=== PATIENT | male | born 1970 | race Caucasian/White ===

== ENCOUNTER 2016-05-14 18:42 | Inpatient (IN) | payer MEDICAID ==
[~2016-05-14] VITALS: Ht 162.6 cm; Wt 67.6 kg
[2016-05-14 18:54] VITALS: BP 129/85
[2016-05-14] MEDS ORDERED: NACL 0.9% 2,500 ML IV ONE (19:05)
[2016-05-14] MEDS ORDERED: ALBUTEROL 0.083% 2.5 MG/3 ML NEBU INH ONE (19:05)
--- NOTE | 2016-05-14 19:10 | NUR ---
PT BIBA TO BED 5
--- NOTE | 2016-05-14 19:25 | NUR ---
45 YO MALE BIB EMS FROM [facility] FOR SOB AND COUGH. PT ON BED. VSS AT THIS TIME. ERMD AWARE. QUADRIPLEGIA. WITH MARIE CATH INTACT.
[2016-05-14] MEDS ORDERED: MAGNESIUM HYDROXIDE PO (19:44)
[2016-05-14] MEDS ORDERED: LIORESAL10 MG PO ×2 (19:44)
[2016-05-14] MEDS ORDERED: ASPIRIN81 M1 PO (19:44)
[2016-05-14] MEDS ORDERED: ORAPRED ODT10 MG PO (19:44)
[2016-05-14] MEDS ORDERED: COLACE100 M1 PO (19:44)
[2016-05-14] MEDS ORDERED: NEURONTIN300 MG PO (19:44)
[2016-05-14] MEDS ORDERED: VITAMIN C500 M8 PO (19:44)
[2016-05-14] MEDS ORDERED: MULTI-VITAMIN1 EACH PO (19:44)
[2016-05-14] MEDS ORDERED: LIPITOR20 MG PO (19:44)
[2016-05-14] MEDS ORDERED: NORCO 325 MG-7.1 TAB PO (19:44)
[2016-05-14] MEDS ORDERED: BISACODYL10 M1 RC (19:44)
[2016-05-14] MEDS ORDERED: ALBUTEROL1.25 MG/3 IH (19:44)
[2016-05-14] MEDS ORDERED: LORAZEPAM0.5 M1 PO (19:44)
[2016-05-14] MEDS ORDERED: COUGH100 MG/51 PO (19:44)
[2016-05-14] MEDS ORDERED: MELATONIN 3 MG1 EACH PO (19:44)
[2016-05-14] MEDS ORDERED: ACIDOPHILUS PR1 EACH PO (19:44)
[2016-05-14] MEDS ORDERED: AZTREONAM 2,000 MG in DEXTROSE 5% 100 ML IV ONE (19:45)
[2016-05-14] MEDS ORDERED: VANCOMYCIN 1,000 MG in DEXTROSE 5% 250 ML IV ONE (19:45)
[2016-05-14] MEDS ORDERED: LEVOFLOXACIN 750 MG/D5W PREMIX 150 ML IV ONE (19:45)
[2016-05-14] MEDS ORDERED: DETROL LA4 MG PO (19:54)
[2016-05-14] MEDS ORDERED: QVAR HFA MDI7.3 G1 INH (19:54)
[2016-05-14] MEDS ORDERED: FIBER0.52 GM PO (19:54)
[2016-05-14] MEDS ORDERED: ULTRAM50 MG PO (20:08)
[2016-05-14] MEDS ORDERED: ZINC SULFATE220 M1 PO (20:08)
[2016-05-14] MEDS ORDERED: TYLENOL325 M2 PO (20:08)
[2016-05-14] MEDS ORDERED: VANCOMYCIN 1,000 MG VIAL ONE (20:19)
[2016-05-14] MEDS ORDERED: AZTREONAM 1,000 MG VIAL ONE (20:20)
--- NOTE | 2016-05-14 20:58 | NUR ---
RN ON THE FLOOR STILL WITH THE OTHER PATIENT. WILL CALL BACK.
--- NOTE | 2016-05-14 21:00 | NUR ---
GAVE RDR. REPORT TO DIMPLE MCGRATH ON THE FLOOR. BP 86/41, DR. MCQUEEN AWARE.
--- NOTE | 2016-05-14 21:01 | NUR ---
Patient will be admitted to care of DR. ACUÑA. Admited to TELE. Will go to [facility]. Belongings list completed. Report to DIMPLE MCGRATH.
--- NOTE | 2016-05-14 21:10 | NUR ---
WILL CONTINUE TO MONITOR BP. DR. MCQUEEN AWARE
--- NOTE | 2016-05-14 21:20 | NUR ---
# 16 FR Morales catheter utilizing sterile technique. Immediate return of ml urine noted. Bedside drainage bag placed below level of bladder. Urine sample collected and sent to lab. Pt tolerated procedure WELL.
--- NOTE | 2016-05-14 21:46 | NUR ---
PT TRANSFERRED TO FLOOR ACCOMPANIED BY RN AND EMT ATTACHED TO UNIX MANAGER ON GUARDED CONDITION. VSS. BP 92/48 , O2 SAT 98% , HR 80, RR 22.
--- NOTE | 2016-05-14 21:50 | NUR ---
ADMITTED A PT FROM ER. TRANSPORTED VIA GURNEY, ACCOMPANIED BY ER NURSE. PT IS AAOX4, HAS NO COMPLAIN OF PAIN. HAS FACE MASK AT 10LPM. HAS MARIE CATHETER IN PLACED. APPLIED TELE MONITOR, UPDATED ID BAND, VERIFIED ALLERGY. IV SITE IS PATENT AND INTACT. SKIN CHECKING WITH THE CHARGE NURSE DONE, PRESSURE ULCER IDENTIFIED TO HIS RIGHT BUTTOCK, PHOTO TAKEN. ORIENTATION TO ROOM DONE. PLAN OF CARE DISCUSSED, VERBALIZED UNDERSTANDING. SAFETY MEASURES INITIATED. WILL CONTINUE TO MONITOR.
[2016-05-14 22:00] VITALS: BP 102/54
[2016-05-15] VITALS: BP 90/54
--- NOTE | 2016-05-15 | NUR ---
V/S CHECKED, HAS NO COMPLAIN OF PAIN. NO S/S OF RESPIRATORY DISTRESS/DISCOMFORT NOTED.
--- NOTE | 2016-05-15 00:45 | NUR ---
PT REQUESTED TO EAT CRACKERS, PROVIDED. ALL NEEDS MET AND ATTENDED. CALL LIGHT WITHIN REACH.
[2016-05-15] MEDS ORDERED: MORPHINE SULFATE 2 MG/ML SYR IVP PRN (01:35)
[2016-05-15] MEDS ORDERED: ACETAMINOPHEN 325 MG TAB PO PRN (01:35)
[2016-05-15] MEDS ORDERED: HYDROcodone/APAP 5/325 MG 1 TAB TAB PO PRN (01:35)
[2016-05-15] MEDS ORDERED: ONDANSETRON 4 MG/2 ML VIAL IVP PRN (01:35)
[2016-05-15] MEDS ORDERED: ALBUTEROL 0.083% 2.5 MG/3 ML NEBU INH PRN (01:35)
[2016-05-15] MEDS ORDERED: COMPOSITE DRESSING TP PRN (01:40)
[2016-05-15] MEDS: NACL 0.9% 1,000 ML IV SCH ×2 (02:43→21:37)
--- NOTE | 2016-05-15 02:48 | NUR ---
PT SLEEPING. SAFETY MEASURES CHECKED, CALL LIGHT WITHIN REACH. NO S/S OF RESPIRATORY DISTRESS/DISCOMFORT NOTED.
[2016-05-15 04:00] VITALS: BP 103/69
--- NOTE | 2016-05-15 04:00 | NUR ---
V/S CHECKED ANS STABLE. HAS NO COMPLAIN OF PAIN. NO S/S OF RESPIRATORY DISTRESS/DISCOMFORT NOTED.
--- NOTE | 2016-05-15 05:28 | NUR ---
0520 SXNED PT NOSE. RECIEVED MOD AMT PALE YELLOW SECRETIONS. PT STATES HE FEELS BETTER POST HHNTX AND SXNING
[2016-05-15] MEDS ORDERED: ALBUTEROL 0.083% 2.5 MG/3 ML NEBU INH SCH (07:00)
--- NOTE | 2016-05-15 07:21 | NUR ---
ENDORSED REPORT TO DAY SHIFT NURSE FOR CONTINUITY OF CARE. PT IS IN STABLE CONDITION.
[2016-05-15] MEDS: ALBUTEROL SULFATE/IPRATROPIU 3 ML SOL IH PRN (07:26)
[2016-05-15] MEDS: BUDESONIDE 0.5 MG/2 ML NEBU INH SCH ×2 (07:26→19:08)
--- NOTE | 2016-05-15 07:30 | NUR ---
RECEIVED PATIENT REPORT AT BEDSIDE. PATIENT AWAKE, ALERT AND ORIENTED. NO S/S OF DISTRESS NOTED. PATIENT ON 8L O2 VIA FACE MASK. MARIE CATHETER IN PLACE, DRAINING CLEAR YELLOW URINE. IV SITE TO THE LEFT FOREARM INTACT WITH IVF INFUSING WELL. PATIENT ON TELE MONITORING. BED LOWERED WITH CALL LIGHT WITHIN REACH. WILL CONTINUE TO MONITOR
[2016-05-15 08:00] VITALS: BP 111/39
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
--- NOTE | 2016-05-15 08:00 | NUR ---
'PATIENT SEEN BY THE WOUND CARE NURSE. DRESSING ON THE RIGHT BUTTOCK WOUND CHANGED. DR ACUÑA PRESENT IN THE ROOM AND EXPLAINED TO THE PATIENT THAT HE WILL BE SEEN BY A SURGEON FOR A POSSIBLE DEBRIDEMENT
--- NOTE | 2016-05-15 09:00 | NUR ---
ASSISTED PATIENT WITH BREAKFAST. PATIENT ON 3L O2 VIA NC. NO S/S OF DISTRESS NOTED. WILL CONTINUE TO MONITOR
--- NOTE | 2016-05-15 09:46 | NUR ---
ABG RESULTS GIVEN TO . MADE PHYSICIAN AWARE THAT PT WAS PLACED BACK ON 3L NC. WILL CONTINUE TO MONITOR.
[2016-05-15] MEDS: SCOPOLAMINE 1.5 MG/72 HR PATCH TD SCH (09:55)
[2016-05-15] MEDS: ALBUTEROL SULFATE/IPRATROPIU 3 ML SOL IH SCH ×4 (11:47→22:36)
[2016-05-15 12:00] VITALS: BP 90/45
[2016-05-15] MEDS ORDERED: LORazepam 2 MG/ML VIAL IM/IVP SCH (13:10)
[2016-05-15 14:01] VITALS: BP 112/68
[2016-05-15] MEDS ORDERED: guaiFENesin 20 MG/ML UDC PO PRN (14:20)
[2016-05-15] MEDS ORDERED: ALBUTEROL SULFATE 1.25 MG IH PRN (14:20)
[2016-05-15] MEDS ORDERED: HYDROcodone/APAP 7.5/325 MG 1 TAB PO PRN (14:20)
[2016-05-15] MEDS ORDERED: MAGNESIUM HYDROXIDE 2400 MG/30 ML UDC PO PRN (14:20)
[2016-05-15] MEDS ORDERED: LORazepam 1 MG TAB PO PRN (14:20)
[2016-05-15] MEDS ORDERED: BISACODYL 10 MG SUPP RC PRN (14:20)
[2016-05-15] MEDS ORDERED: ACETAMINOPHEN 325 MG TAB PO SCH (14:20)
[2016-05-15] MEDS ORDERED: PSYLLIUM HUSK 0.52 GM PO SCH (14:20)
[2016-05-15] MEDS ORDERED: PSYLLIUM 12.2 GM/PKT PO PRN (14:55)
--- NOTE | 2016-05-15 15:01 | NUR ---
PATIENT SEEN BY DR PERSAUD
--- NOTE | 2016-05-15 15:15 | NUR ---
05/15/16 INITIAL ASSESSMENT COMPLETED PLEASE REFER TO NUTRITION ASSESSMENT UNDER CARE ACTIVITY FOR ESTIMATED NUTRITIONAL NEEDS. RD RECOMMENDATIONS: 1. CONTINUE ON REGULAR DIET TOLERATED RD WILL MONITOR GLUCOSE LAB VALUES RD WILL ADD DIET HEALTH SHAKES BID FOR INCREASE PROTEIN NEEDS FOR OPTIMUM WOUND HEALING --THIS WILL ADD AN ADDITIONAL 400 KCAL AND [address] WILL F/U 3-5 DAYS; MODERATE RISK. ALYSSIA FREEMAN RD
--- NOTE | 2016-05-15 15:26 | NUR ---
FOUND PT ON ROOM AIR SPO2 94%. PT NOT SOB AND NOT IN RESPIRATORY DISTRESS. BEDSIDE MADE AWARE OF ABG RESULTS AND SPO2 ON ROOM AIR, PHYSICIAN STATES TO KEEP PT ON ROOM AIR AND MONITOR SATURATION.
[2016-05-15 16:00] VITALS: BP 105/66
[2016-05-15] MEDS: BACLOFEN 10 MG TAB PO SCH (16:37)
[2016-05-15] MEDS: OXYBUTYNIN 5 MG TAB PO SCH (16:38)
[2016-05-15] MEDS ORDERED: traMADol 50 MG TAB PO SCH ×2 (18:00→18:36)
--- NOTE | 2016-05-15 19:25 | NUR ---
ENDORSED CONTINUITY OF CARE TO THE NIGHT NURSE. PATIENT IN STABLE IN CONDITION
--- NOTE | 2016-05-15 19:30 | NUR ---
RCV'D PT ON 2 L NC SAT 97% HR 84. BS ARE CLEAR AND DIMINISHED. HHN TX OF DUO AND PULMICORT GIVEN. NO SIGNS OF SOB OR DISTRESS NOTED. DIMPLE RICHEY AT BEDSIDE. WILL CONTINUE TO MONITOR.
--- NOTE | 2016-05-15 19:32 | NUR ---
RECEIVED REPORT FROM DAY RN FOR CONTINUITY OF CARE. PATIENT IS A&OX4, DISCUSSED PLAN OF CARE WITH PATIENT, VERBALIZED UNDERSTANDING. SHIFT ASSESSMENT DONE, VS TAKEN, IN STABLE CONDITION. NO S/S OF RESPIRATORY DISTRESS NOTED ON 2L NC, O2 SAT 98-99%. PATIENT DENIES PAIN AT THIS TIME. PT HAS PRESSURE ULCER TO RT BUTTOCK, DRESSING DRY AND INTACT. IV TO RT HAND 22 GAUGE PATENT AND FLUSHED. MARIE CATHETER IN PLACE, DRAINING LIGHT HAILE URINE. PT REQUESTED TO BE TURNED, TURNED AND REPOSITIONED PT. SAFETY/FALL PRECAUTIONS ENFORCED. CALL LIGHT PLACED WITHIN REACH. WILL CONTINUE TO MONITOR.
[2016-05-15] MEDS ORDERED: NON-FORMULARY ITEM (Melatonin/Pyridoxine HCl (B6) (Melatonin 3 mg Tablet) 1 EACH) PO SCH (21:00)
[2016-05-15] MEDS ORDERED: [UNRECOGNIZED DRUG - OTHER] PO SCH (21:00)
[2016-05-15] MEDS ORDERED: BECLOMETHASONE DIPROPIONATE INH SCH (21:00)
[2016-05-15] MEDS ORDERED: TOLTERODINE LA 4 MG CAPER PO SCH (21:00)
[2016-05-15] MEDS ORDERED: PREDNISOLONE SOD PHOSPHATE PO SCH (21:00)
[2016-05-15] MEDS: GABAPENTIN 300 MG CAP PO SCH (21:35)
[2016-05-15] MEDS: CLINDAMYCIN 600 MG in DEXTROSE 5% 50 ML IV SCH (21:35)
--- NOTE | 2016-05-15 21:35 | NUR ---
DUE MEDICATIONS ADMINISTERED, TOLERATED WELL. WILL CONTINUE TO MONITOR.
[2016-05-15] MEDS: prednisoLONE 15 MG/5 ML UDC PO SCH (21:36)
[2016-05-15] MEDS: LEVOFLOXACIN 750 MG/D5W PREMIX 150 ML IV SCH (22:02)
--- NOTE | 2016-05-15 22:21 | NUR ---
PT STATES HAVING ANXIETY, ADMINISTERED ATIVAN PER MD ORDER, VS STABLE. REPOSITIONED PATIENT, TOLERATED WELL.
[2016-05-16] VITALS: BP 90/53
[2016-05-16] MEDS: traMADol 50 MG TAB PO SCH ×4 (00:17→18:08)
--- NOTE | 2016-05-16 00:17 | NUR ---
VS TAKEN, STABLE. DUE MEDICATIONS ADMINISTERED.
--- NOTE | 2016-05-16 02:04 | NUR ---
REPOSITIONED AND TURNED PATIENT. REPLACED IV FLUIDS. ALL NEEDS MET AT THIS TIME. CALL LIGHT WITHIN REACH.
[2016-05-16] MEDS: ALBUTEROL SULFATE/IPRATROPIU 3 ML SOL IH SCH ×6 (03:40→23:38)
[2016-05-16 04:00] VITALS: BP 99/50
--- NOTE | 2016-05-16 04:05 | NUR ---
REPOSITIONED PATIENT TO OFFLOAD PRESSURE. VS TAKEN, STABLE. CALL LIGHT PLACED WITHIN REACH. EMPTIED MARIE BAG 1800 ML.
[2016-05-16] MEDS: CLINDAMYCIN 600 MG in DEXTROSE 5% 50 ML IV SCH ×3 (05:33→20:40)
--- NOTE | 2016-05-16 05:33 | NUR ---
DUE MEDICATIONS ADMINISTERED, TOLERATED WELL. ALL NEEDS MET AT THIS TIME. CALL LIGHT PLACED WITHIN REACH.
--- NOTE | 2016-05-16 07:10 | NUR ---
RECEIVED PT REPORT AT BEDSIDE. PT IS A/OX4. HE IS RESTING IN BED WITH NO SIGNS AND SYMPTOMS OF DISTRESS. PT ON RM AIR CURRENTLY RECEIVING BREATHING TX. IV NOTED ON THE R HAND SALINE LOCKED. PT HAS MARIE CATHETER IN PLACE WITH YELLOW URINE. PT HAS DRESSING ON RIGHT BUTTOCK. DRESSING IS CLEAN DRY AND INTACT. ON TELE MONITORING. BED LOWERED WITH CALL LIGHT WITHIN REACH. WILL CONTINUE TO MONITOR.
--- NOTE | 2016-05-16 07:23 | NUR ---
ENDORSED PATIENT TO DAY RN FOR CONTINUITY OF CARE, PATIENT IS IN STABLE CONDITION.
[2016-05-16] MEDS: BUDESONIDE 0.5 MG/2 ML NEBU INH SCH ×2 (07:24→18:57)
[2016-05-16 08:00] VITALS: BP 104/67
[2016-05-16] MEDS: ASPIRIN 81 MG TAB.CHEW PO SCH (08:45)
[2016-05-16] MEDS: DOCUSATE SODIUM 250 MG GELCAP PO SCH (08:46)
[2016-05-16] MEDS: LACTOBACILLUS RHAMNOSUS GG 1 EACH CAP PO SCH ×2 (08:46→08:52)
[2016-05-16] MEDS: BACLOFEN 10 MG TAB PO SCH ×3 (08:47→16:13)
[2016-05-16] MEDS: ATORVASTATIN 20 MG TAB PO SCH (08:47)
[2016-05-16] MEDS: OXYBUTYNIN 5 MG TAB PO SCH ×3 (08:47→16:13)
[2016-05-16] MEDS: GABAPENTIN 300 MG CAP PO SCH ×2 (08:48→20:39)
[2016-05-16] MEDS: MULTIVITAMIN 1 TAB PO SCH (08:49)
[2016-05-16] MEDS: ASCORBIC ACID 500 MG TAB PO SCH (08:50)
[2016-05-16] MEDS: ZINC SULF 220 MG CAP PO SCH (08:51)
[2016-05-16] MEDS: prednisoLONE 15 MG/5 ML UDC PO SCH ×2 (08:51→20:39)
--- NOTE | 2016-05-16 09:00 | NUR ---
ADMINISTERED DUE MEDS. PT TOLERATED WELL. PT REPOSITIONED AND TURNED. PT ON RM AIR. NO SIGNS AND SYMPTOMS OF DISTRESS NOTED WILL CONTINUE TO MONITOR.
[2016-05-16 11:28] VITALS: BP 110/67
--- NOTE | 2016-05-16 11:30 | NUR ---
PT IS IN BED WITH NO S/S OF DISTRESS. TOOK PT VITALS THEY ARE WITHIN NORMAL LIMITS.
--- NOTE | 2016-05-16 14:00 | NUR ---
PT IS IN BED RESTING WHILE ON HIS PHONE. NO S/S OF DISTRESS NOTED.
[2016-05-16 16:00] VITALS: BP 95/54
--- NOTE | 2016-05-16 17:00 | NUR ---
DRESSING ON R BUTTOCK CHANGED WITH MODERATE DRAINAGE. PT TOLERATED WELL.
[2016-05-16] MEDS: NACL 0.9% 1,000 ML IV SCH (17:32)
--- NOTE | 2016-05-16 19:10 | NUR ---
GAVE REPORT AT BEDSIDE WITH ADELITA MUSA. PT IS CURRENTLY RECEIVING BREATHING TX WITH RT. PT IS COMFORTABLE IN BED AND SHOWS NO S/S OF DISTRESS. PT ENDORSED IN STABLE CONDITION.
--- NOTE | 2016-05-16 19:11 | NUR ---
PATIENT IS CURRENTLY AWAKE ALERT RESTING IN BED DENIES PAIN AND DISCOMFORT AT THIS TIME HE IS RESTING ON A WOUND CARE MATTRESS AND CONTINUES TO HAVE HIS SCD'S ON FOR DVT PROPHALAXIS.PT WAS RECENTLY TURNED AND REPOSITIONED.MARIE CATHETER TO GRAVITY DRAINING WELL,IVF INFUSING WELL IV SITE CURRENTLY PATENT.PT ABLE TO VERBALIZE NEEDS.WILL CONTINUE TO MONITOR.
[2016-05-16 20:00] VITALS: BP 90/45
[2016-05-16] MEDS: LEVOFLOXACIN 750 MG/D5W PREMIX 150 ML IV SCH (20:39)
--- NOTE | 2016-05-16 20:39 | NUR ---
EDUCATION GIVEN ON HIS ROUTINE MEDICATION AND PATIENT TOOK ALL HIS ROUTINE MEDICATION WELL,WILL CONTINUE TO MONITOR.
--- NOTE | 2016-05-16 22:11 | NUR ---
PATIENT WAS TURNED AND REPOSITIONED OFFLOADING DONE WITH PILLOWS TURNED WITH THE ASSISTANCE OF VANNA OSHEA AND MYSELF. PATIENT TOLERATED ACTIVITY WELL AND PT STATES,"I FEEL COMFORTABLE." PATIENT IS VERY COMPLIANT WITH TURNING AND REPOSITIONING.CALL LIGHT WITHIN REACH WILL CONTINUE TO MONITOR.
--- NOTE | 2016-05-16 23:24 | NUR ---
Patient's Plan of Care was discussed and reviewed with ANTENNA INSTALLER: ADELITA MANDUJANO
[2016-05-17 00:15] VITALS: BP 113/64
--- NOTE | 2016-05-17 00:15 | NUR ---
PATIENT WAS TURNED AND REPOSITIONED FOR COMFORT WITH THE ASSISTANCE OF VANNA OSHEA,TURNING AND OFFLOADING DONE PT REFUSED TO WEAR THE SCD'S PT STATES,"THEY FEEL UNCOMFORTABLE." EDUCATION GIVEN ON THE IMPORTANCE OF WEARING THEM FOR DVT PROPHALAXIS PT VERBALIZES UNDERSTANDING BUT PT REFUSES TO WEAR THEM.PT HAS NO COMPLAINS OF PAIN AT THIS TIME.WILL CONTINUE TO MONITOR FREQUENT VISUAL CHECKS DONE.WATER GIVEN TO THE PATIENT CALL LIGHT KEPT WITHIN PT'S REACH.
[2016-05-17] MEDS: traMADol 50 MG TAB PO SCH ×4 (01:07→17:48)
[2016-05-17] MEDS: ALBUTEROL SULFATE/IPRATROPIU 3 ML SOL IH SCH ×6 (02:13→22:45)
--- NOTE | 2016-05-17 02:33 | NUR ---
PATIENT STABLE RESTING COMFORTABLY IN BED IN NO DISTRESS,IVF INFUSING WELL WILL CONTINUE TO MONITOR.CALL LIGHT WITHIN REACH.
--- NOTE | 2016-05-17 04:05 | NUR ---
PATIENT RESTING COMFORTABLY IN BED WAS TURNED AND REPOSITIONED WITH THE ASSISTANCE OF VANNA REED AND VANNA WILCOX. CALL LIGHT WITHIN REACH.
[2016-05-17] MEDS: CLINDAMYCIN 600 MG in DEXTROSE 5% 50 ML IV SCH ×3 (04:33→20:28)
--- NOTE | 2016-05-17 05:57 | NUR ---
PATIENT IS CURRENTLY RESTING IN BED WAS TURNED AND REPOSITIONED EARLIER BY VANNA WILCOX AND VANNA REED PT DOING WELL.IVF INFUSING WELL IV SITE PATENT WILL CONTINUE TO MONITOR.
[2016-05-17] MEDS: BUDESONIDE 0.5 MG/2 ML NEBU INH SCH ×2 (06:38→19:07)
--- NOTE | 2016-05-17 06:42 | NUR ---
PT ASLEEP AT THIS TIME WILL CONTINUE TO MONITOR.
--- NOTE | 2016-05-17 07:15 | NUR ---
RECEIVED PATIENT REPORT AT BEDSIDE. PATIENT ASLEEP BUT EASILY AROUSABLE. NO S/S OF DISTRESS NOTED. PATIENT ON ROOM AIR. IV LINE NOTED TO THE RIGHT UPPER ARM WITH IVF INFUSING WELL. MARIE CATHETER IN PLACE, DRAINING CLEAR YELLOW URINE. BED LOWERED WITH CALL LIGHT WITHIN REACH. WILL CONTINUE TO MONITOR
[2016-05-17 08:00] VITALS: BP 117/65
--- NOTE | 2016-05-17 08:00 | NUR ---
PATIENT TURNED AND REPOSITIONED. PATIENT TOLERATED WELL
--- NOTE | 2016-05-17 08:50 | NUR ---
ADMINISTERED AM MEDICATION. PT TOLERATED WELL. PT IS RESTING IN BED.
[2016-05-17] MEDS: BACLOFEN 10 MG TAB PO SCH ×3 (08:52→17:51)
[2016-05-17] MEDS: ASPIRIN 81 MG TAB.CHEW PO SCH (08:54)
[2016-05-17] MEDS: DOCUSATE SODIUM 250 MG GELCAP PO SCH (08:54)
[2016-05-17] MEDS: OXYBUTYNIN 5 MG TAB PO SCH ×3 (08:54→17:48)
[2016-05-17] MEDS: GABAPENTIN 300 MG CAP PO SCH ×2 (08:55→20:23)
[2016-05-17] MEDS: ASCORBIC ACID 500 MG TAB PO SCH (08:56)
[2016-05-17] MEDS: MULTIVITAMIN 1 TAB PO SCH (08:56)
[2016-05-17] MEDS: ZINC SULF 220 MG CAP PO SCH (08:56)
[2016-05-17] MEDS: ATORVASTATIN 20 MG TAB PO SCH (08:57)
[2016-05-17] MEDS: LACTOBACILLUS RHAMNOSUS GG 1 EACH CAP PO SCH ×2 (08:58→09:00)
[2016-05-17] MEDS: prednisoLONE 15 MG/5 ML UDC PO SCH ×2 (08:59→20:23)
--- NOTE | 2016-05-17 12:00 | NUR ---
ADMINISTERED SCHEDULED MEDICATIONS. PT TOLERATED WELL AND IS RESTING IN BED.
--- NOTE | 2016-05-17 12:45 | NUR ---
PT IS BEING FED LUNCH BY NURSE. NO S/S OF DISTRESS.
[2016-05-17] MEDS: NACL 0.9% 1,000 ML IV SCH (13:32)
--- NOTE | 2016-05-17 14:00 | NUR ---
PT WAS REPOSITIONED. PT TOLERATED WELL. PT IS WATCHING TV AND RESTING IN THE ROOM.
[2016-05-17 16:00] VITALS: BP 91/51
--- NOTE | 2016-05-17 17:54 | NUR ---
PT IN BED AND IS BEING FED BY NURSE INFANTRY WEAPONS CREWMEMBER. PT IS TOLERATING WELL.
--- NOTE | 2016-05-17 18:30 | NUR ---
WOUND DRESSING CHANGED. PATIENT REPOSITIONED AND TURNED. PT TOLERATED WELL
--- NOTE | 2016-05-17 19:15 | NUR ---
GAVE PT REPORT AT BEDSIDE. PT ENDORSED IN STABLE CONDITION.
--- NOTE | 2016-05-17 19:16 | NUR ---
PATIENT IS CURRENTLY RESTING IN SPECIAL WOUND CARE BED NO RESPIRATORY DISTRESS AT THIS TIME,PT SPIT UP SCANT AMOUNT OF WHITISH THICK FOAMY PHLEGM. IVF INFUSING WELL IV SITE CURRENTLY PATENT.WILL CONTINUE TO TURN AND REPOSITION THE PATIENT.PT REFUSED TO WEAR THE SCD'S PATIENT STATES,"ITS UNCOMFORTABLE."EDUCATION GIVEN ON THE IMPORTANCE OF WEARING SCD'S FOR DVT PROPHALAXIS PT REFUSED AT THIS TIME.MARIE DRAINING TO GRAVITY WILL CONTINUE TO OBSERVE.
[2016-05-17 20:00] VITALS: BP 113/67
--- NOTE | 2016-05-17 20:10 | NUR ---
PATIENT WAS TURNED AND REPOSITIONED FOR COMFORT WITH THE ASSISTANCE OF VANNA REED. PATIENT CONTINUES TO SPIT SCANT AMOUNT OF FOAMY THICK WHITE PHLEGM.MD GREEN CAME AND SAW THE PATIENT AND HE WAS UPDATED ON PATIENT'S CURRENT CONDITION. PATIENT WAS GIVEN SOME WATER AND OFFERED FLUIDS.CALL LIGHT WITHIN REACH WILL CONTINUE TO MONITOR.
--- NOTE | 2016-05-17 20:23 | NUR ---
EDUCATION GIVEN ON THE ROUTINE MEDICATION THAT HE WILL BE TAKING TONIGHT,PATIENT VERBALIZES UNDERSTANDING AND HE TOOK HIS MEDICATION.CALL LIGHT WITHIN REACH.
[2016-05-17] MEDS: LEVOFLOXACIN 750 MG/D5W PREMIX 150 ML IV SCH (20:28)
--- NOTE | 2016-05-17 21:00 | NUR ---
Patient's Plan of Care was discussed and reviewed with BEND UP: ADELITA MANDUJANO
--- NOTE | 2016-05-17 22:50 | NUR ---
ROUNDS MADE PATIENT STATES," I WOULD LIKE SOME OXYGEN." I PLACE PATIENT ON O2 AT 2L NC FOR NOW AND I WILL CONTINUE TO MONITOR THE PATIENT.
--- NOTE | 2016-05-17 23:58 | NUR ---
PATIENT IS CURRENTLY RESTING IN BED PATIENT CONTINUE TO BE TURNED AND REPOSITIONED FOR COMFORT PATIENT NEEDS MET WILL CONTINUE TO MONITOR.
[2016-05-18 00:25] VITALS: BP 102/73
[2016-05-18] MEDS: traMADol 50 MG TAB PO SCH ×5 (00:50→23:57)
--- NOTE | 2016-05-18 00:50 | NUR ---
PATIENT WAS TURNED AND REPOSITIONED FOR COMFORT WITH THE ASSISTANCE OF FILM BOOKERPenny OSHEA NEEDS MET WILL CONTINUE TO MONITOR.
--- NOTE | 2016-05-18 01:53 | NUR ---
PT CALLED AND STATES HIS HAVING SOME CHEST DISCOMFORT I CHECKED HIS BLOOD PRESSURE 105/76 HR 80 PT STATES,"I THINK ITS BECAUSE I HAVE BEEN TRYING TO COUGH UP THE PHLEGM MAYBE IM JUST A LITLLE ANXIOUS."PATIENT CONTINUES TO HAVE OXYGEN AT 2LITERS NASAL CANNULA AND OFFERED WATER.CALL LIGHT WITHIN REACH WILL CONTINUE TO OBSERVE.
[2016-05-18] MEDS: ALBUTEROL SULFATE/IPRATROPIU 3 ML SOL IH SCH ×6 (02:14→23:32)
--- NOTE | 2016-05-18 02:19 | NUR ---
ROUNDS MADE BY VANNA OSHEA PATIENT CONTINUES TO BE WELL.CALL LIGHT WITHIN REACH.
--- NOTE | 2016-05-18 04:02 | NUR ---
PATIENT IS CURRENTLY SLEEPING IN BED IN NO DISTRESS WILL CONTINUE TO MONITOR.
[2016-05-18] MEDS: CLINDAMYCIN 600 MG in DEXTROSE 5% 50 ML IV SCH ×3 (04:54→20:53)
--- NOTE | 2016-05-18 06:15 | NUR ---
PATIENT IS CURRENTLY RESTING IN BED WAS ALREADY TURNED AND REPOSITIONED FOR COMFORT.PT NEEDS MET.CALL LIGHT WITHIN REACH.
[2016-05-18] MEDS: BUDESONIDE 0.5 MG/2 ML NEBU INH SCH ×2 (07:15→19:54)
--- NOTE | 2016-05-18 07:42 | NUR ---
PATIENT STABLE REPORT ENDORSED TO DIMPLE FLETCHER AT BEDSIDE.
--- NOTE | 2016-05-18 07:43 | NUR ---
PT ALERT AND ORIENTED X4, BREATHING EVENLY AND UNLABORED. KEPT HOB ELEVATED AT LEAST 30 DEGREES. NO SIGNS OF ACUTE DISTRESS. SKIN IS WARM AND DRY. NOTED PRESSURE ULCER ON RIGHT BUTTOCKS. DRESSING KEPT CLEAN DRY AND INTACT. NO BLEEDING OR DISCHARGE NOTED. OFFLOAD TO PRESSURE AREAS. NO C/O ANY BOWEL/BLADDER DISCOMFORT. WITH MARIE CATHETER IN PLACE AND NOTED 300CC OF CLEAR YELLOW URINE. DENIES OF ANY PAIN AT THIS TIME. ALL NEEDS ATTENDED, SAFETY PRECAUTIONS MAINTAINED. CALL LIGHT WITHIN REACH.
[2016-05-18 08:00] VITALS: BP 110/83
[2016-05-18] MEDS: ASCORBIC ACID 500 MG TAB PO SCH (08:33)
[2016-05-18] MEDS: LACTOBACILLUS RHAMNOSUS GG 1 EACH CAP PO SCH ×2 (08:33)
[2016-05-18] MEDS: ZINC SULF 220 MG CAP PO SCH (08:33)
[2016-05-18] MEDS: BACLOFEN 10 MG TAB PO SCH ×3 (08:33→17:39)
[2016-05-18] MEDS: prednisoLONE 15 MG/5 ML UDC PO SCH ×2 (08:33→20:53)
[2016-05-18] MEDS: ATORVASTATIN 20 MG TAB PO SCH (08:33)
[2016-05-18] MEDS: ASPIRIN 81 MG TAB.CHEW PO SCH (08:34)
[2016-05-18] MEDS: GABAPENTIN 300 MG CAP PO SCH ×2 (08:34→20:53)
[2016-05-18] MEDS: OXYBUTYNIN 5 MG TAB PO SCH ×3 (08:34→17:39)
[2016-05-18] MEDS: MULTIVITAMIN 1 TAB PO SCH (08:34)
[2016-05-18] MEDS: DOCUSATE SODIUM 250 MG GELCAP PO SCH (08:34)
[2016-05-18] MEDS: SCOPOLAMINE 1.5 MG/72 HR PATCH TD SCH ×2 (08:35→10:05)
--- NOTE | 2016-05-18 08:36 | NUR ---
NON ADMINISTERED SCOPOLAMINE PATCH, PT NO C/O NAUSEA OR VOMITING AT THIS TIME. CONTINUE TO MONITOR.
[2016-05-18] MEDS: NACL 0.9% 1,000 ML IV SCH ×2 (09:32→18:15)
[2016-05-18] MEDS ORDERED: SKINTEGRITY HYDROGEL TP PRN (14:50)
[2016-05-18 16:00] VITALS: BP 90/59
--- NOTE | 2016-05-18 17:00 | NUR ---
NEW ORDERS RECEIVED FROM DR. GOLDMAN. NOTED AND CARRIED OUT
--- NOTE | 2016-05-18 18:00 | NUR ---
NEW ORDERS RECEIVED FROM DR. ACUÑA. NOTED AND CARRIED OUT
--- NOTE | 2016-05-18 19:01 | NUR ---
PT ALERT AND RESPONSIVE, NO SIGNS OF ACUTE DISTRESS. ENDORSED TO ONCOMING REFRIGERATED NATIONAL TRUCK DRIVER NURSE FOR CONTINUITY OF CARE.
--- NOTE | 2016-05-18 19:05 | NUR ---
RECEIVED REPORT TO DAY SHIFT NURSE. PT IS AAOX4, HAS NO COMPLAIN OF PAIN. HAS NO S/S OF RESPIRATORY DISTRESS/DISCOMFORT NOTED. IV SITE IS PATENT AND INTACT. MARIE CATHETER HAS ALREADY IN PLACED, INDWELLING WELL. PLAN OF CARE DISCUSSED, VERBALIZED UNDERSTANDING. SAFETY MEASURES CHECKED, CALL LIGHT WITHIN REACH. WILL CONTINUE TO MONITOR.
--- NOTE | 2016-05-18 20:00 | NUR ---
REPOSITIONED THE PT. HAS NO COMPLAIN OF PAIN. NO S/S OF DISTRESS. TOLERATED WELL.
[2016-05-18] MEDS: LEVOFLOXACIN 750 MG/D5W PREMIX 150 ML IV SCH (20:53)
--- NOTE | 2016-05-18 21:00 | NUR ---
DUE MEDS GIVEN., PROVIDED HEALTH TEACHING, BENEFITS AND S/E, VERBALIZED UNDERSTANDING. PT TOLERATED WELL.
--- NOTE | 2016-05-18 21:30 | NUR ---
SEEN BY DR PERSAUD, NO NEW ORDERS MADE.
[2016-05-19] VITALS: BP 109/74
--- NOTE | 2016-05-19 | NUR ---
V/S CHECKED AND STABLE, HAS NO COMPLAIN OF PAIN AT THIS TIME. REPOSITIONED PT.
--- NOTE | 2016-05-19 02:30 | NUR ---
PT SLEEPING. NO S/S OF RESPIRATORY DISTRESS/DISCOMFORT NOTED. CALL LIGHT WITHIN REACH.
[2016-05-19] MEDS: ALBUTEROL SULFATE/IPRATROPIU 3 ML SOL IH SCH ×3 (03:40→10:36)
--- NOTE | 2016-05-19 04:30 | NUR ---
AM CARE DONE. NO S/S OF DISTRESS. PT TOLERATED WELL. SAFETY MEASURES CHECKED, CALL LIGHT WITHIN REACH.
[2016-05-19] MEDS: CLINDAMYCIN 600 MG in DEXTROSE 5% 50 ML IV SCH (05:14)
[2016-05-19] MEDS: NACL 0.9% 1,000 ML IV SCH (05:32)
[2016-05-19] MEDS: traMADol 50 MG TAB PO SCH ×3 (06:00→12:51)
--- NOTE | 2016-05-19 07:20 | NUR ---
ENDORSED REPORT TO DAY SHIFT NURSE FOR CONTINUITY OF CARE. PT IS STABLE.
--- NOTE | 2016-05-19 07:24 | NUR ---
RECEIVED PT IN BED. ALERT AWAKEX4. BREATHING EVEN AND UNLABORED. NO SOB NOTED. DENIES ANY PAIN OR DISCOMFORT AT THIS TIME. POSITIVE BOWEL SOUNDS NOTED ON ALL FOUR QUADRANTS STAGE 4 RIGHT UPPER BUTTOCK NOTED. DRESSING INTACT. OFF LOAD PRESSURE ON BONY PROMINENCE. REPOSITIONING DONE ORDERED. SAFETY PRECAUTION IN PLACE. CALL LIGHT WITHIN REACH.
[2016-05-19] MEDS: BUDESONIDE 0.5 MG/2 ML NEBU INH SCH (07:25)
[2016-05-19 08:00] VITALS: BP 110/58
[2016-05-19] MEDS ORDERED: LEVAQUIN750 MG PO (08:22)
[2016-05-19] MEDS ORDERED: CLEOCIN HCL300 M1 IV (08:22)
[2016-05-19] MEDS ORDERED: SKINTEGRITY HYDROGEL TP SCH (09:00)
[2016-05-19] MEDS: LACTOBACILLUS RHAMNOSUS GG 1 EACH CAP PO SCH ×2 (09:00→09:29)
[2016-05-19] MEDS: MULTIVITAMIN 1 TAB PO SCH (09:28)
[2016-05-19] MEDS: BACLOFEN 10 MG TAB PO SCH ×2 (09:29→12:50)
[2016-05-19] MEDS: ZINC SULF 220 MG CAP PO SCH (09:29)
[2016-05-19] MEDS: OXYBUTYNIN 5 MG TAB PO SCH ×2 (09:29→12:50)
[2016-05-19] MEDS: DOCUSATE SODIUM 250 MG GELCAP PO SCH (09:29)
[2016-05-19] MEDS: ATORVASTATIN 20 MG TAB PO SCH (09:29)
[2016-05-19] MEDS: ASPIRIN 81 MG TAB.CHEW PO SCH (09:30)
[2016-05-19] MEDS: GABAPENTIN 300 MG CAP PO SCH (09:30)
[2016-05-19] MEDS: ASCORBIC ACID 500 MG TAB PO SCH (09:30)
[2016-05-19] MEDS: prednisoLONE 15 MG/5 ML UDC PO SCH (09:34)
--- NOTE | 2016-05-19 09:42 | NUR ---
SS NOTE: PER TIKA FROM [facility] ([phone]), PT CAN GO TO ROOM 104C UNDER THE CARE OF DR. Alida MORALES ANYTIME AFTER 1400 TODAY.
--- NOTE | 2016-05-19 10:13 | NUR ---
DEBRA NOTE: SPOKE TO DARLYN FROM [facility] ([phone]) AND SET UP GURNEY TRANSPORTATION. EMPLOYEE WELLNESS/FITNESS COORDINATOR TIME AT 2PM. PATIENT WILL BE GOING TO [facility] ([facility] [address] [phone], TEL NO. [phone]) ROOM 104C.
[2016-05-19 11:05] VITALS: BP 118/77
[2016-05-19] MEDS ORDERED: PNEUMOCOCCAL VACCINE 23 MCG/0.5 ML VIAL IMVAC SCH (11:05)
[2016-05-19] MEDS ORDERED: CLINDAMYCIN 600 MG in DEXTROSE 5% 50 ML IV SCH (13:00)
--- NOTE | 2016-05-19 13:00 | NUR ---
DRESSING CHANGED ON RIGHT BUTTOCK. PHOTO TAKEN AND DOCUMENTED.
[2016-05-19] MEDS: ALBUTEROL SULFATE/IPRATROPIU 3 ML SOL IH PRN (13:31)
--- NOTE | 2016-05-19 13:43 | NUR ---
REPORT GIVEN TO KAYY MIRELES RN [facility]. CALLED SON CHILANGO CHENG AND MADE AWARE OF THE TRANSFER BACK TO [facility].
--- NOTE | 2016-05-19 14:35 | NUR ---
[facility] CAME AND PICKED UP THE PT. PT ON STABLE CONDITION, ALERT ORIENTEDX4. NO SOB NOTED. IV HEPLOCKED, AND MARIE CATHETER IN PLACE. PT REFUSED MARIE CATHETER TO BE TAKEN OUT. DISCHARGED TO [facility].
[2016-05-19] MEDS ORDERED: LEVOFLOXACIN 750 MG/D5W PREMIX 150 ML IV SCH ×2 (21:00)
== END 2016-05-19 14:35 | DRG 720 ==
LOC: MED 18:42 → MTU 20:49
PROVIDERS: ADMIT Family Medicine; ATTEND Family Medicine
DX: A41.9 Sepsis, unspecified organism (principal); N17.0 Acute kidney failure with tubular necrosis; J96.01 Acute respiratory failure with hypoxia; J69.0 Pneumonitis due to inhalation of food and vomit; L89.314 Pressure ulcer of right buttock, stage 4; E43 Unspecified severe protein-calorie malnutrition; R53.2 Functional quadriplegia; J44.9 Chronic obstructive pulmonary disease, unspecified; F41.9 Anxiety disorder, unspecified; E78.5 Hyperlipidemia, unspecified; N31.9 Neuromuscular dysfunction of bladder, unspecified; M62.838 Other muscle spasm; K21.9 Gastro-esophageal reflux disease without esophagitis; I10 Essential (primary) hypertension; E11.42 Type 2 diabetes mellitus with diabetic polyneuropathy; N39.0 Urinary tract infection, site not specified; Z93.1 Gastrostomy status; Z79.82 Long term (current) use of aspirin; Z72.0 Tobacco use; Z88.0 Allergy status to penicillin; Z79.899 Other long term (current) drug therapy; Z72.89 Other problems related to lifestyle; Z68.25 Body mass index [BMI] 25.0-25.9, adult